=== PATIENT | female | born 1955 | race African-American/Black ===

== ENCOUNTER 2019-02-06 05:57 | Inpatient (IN) | payer BC ==
[2019-02-04 12:12] VITALS: BMI 32.6
[2019-02-06] MEDS ORDERED: oxyCODONE HCL 10 MG SUSTAINED ACTING TABLET ONE (07:18)
[2019-02-06] MEDS ORDERED: oxyCODONE HCL 10 MG SUSTAINED ACTING TABLET PO ONE (07:19)
[2019-02-06] MEDS ORDERED: VANCOMYCIN 1,000 MG in DEXTROSE 5%-WATER - 250 ML IVPB ONE (07:27)
[2019-02-06] MEDS ORDERED: TRANEXAMIC ACID 1000 MG/10 ML VIAL IVPUSH ONE (07:27)
--- NOTE | 2019-02-06 07:30 | HP ---
History & Physical Update - History History: No Change - Physical Physical: No Change - Assessment Assessment: No Change - Plan Plan: No Change (H&P in chart from 02/02/2019)
[2019-02-06] MEDS ORDERED: SODIUM CHLORIDE 0.9% P/F 10 ML VIAL IJ ONE (07:45)
[2019-02-06] MEDS ORDERED: BUPIVACAINE LIPOSOME/PF (EXPAREL) 266 MG/20 ML VIAL ONE (07:45)
[2019-02-06] MEDS ORDERED: MIDAZOLAM HCL 2 MG/2 ML SINGLE DOSE VIAL ONE ×3 (07:46→08:57)
[2019-02-06] MEDS ORDERED: CLINDAMYCIN 900 MG PREMIX IVPB 900 MG/50 ML BAG IVPB ONE (08:15)
[2019-02-06] MEDS ORDERED: BUPIVACAINE HCL/PF 0.5% (5MG/ML) 10 ML VIAL ONE (08:18)
[2019-02-06] MEDS ORDERED: ceFAZolin SODIUM 1 GM VIAL ONE (08:20)
[2019-02-06] MEDS ORDERED: VANCOMYCIN 1,000 MG VIAL (RESTRICTED TO ID ONLY) ONE (08:20)
[2019-02-06] MEDS ORDERED: TRANEXAMIC ACID 1000 MG/10 ML VIAL ONE (08:26)
[2019-02-06] MEDS ORDERED: CEFAZOLIN 2 GM in DEXTROSE 5%-WATER - 50 ML IVPB ONE (08:44)
[2019-02-06] MEDS ORDERED: PROPOFOL 20 ML ONE ×3 (09:17→10:04)
[2019-02-06] MEDS ORDERED: BENZOIN/ALOE VERA/STORAX/TOLU 58 ML BOTTLE ONE (09:52)
[2019-02-06] MEDS ORDERED: ONDANSETRON 4 MG/2 ML VIAL IVPUSH PRN ×2 (11:07→11:28)
[2019-02-06] MEDS ORDERED: LACTATED RINGERS SOLUTION 1,000 ML IV SCH ×2 (11:15→11:30)
[2019-02-06] MEDS ORDERED: MAG HYDROX/AL HYDROX/SIMETH 30 ML UNIT-DOSE CUP PO PRN (11:28)
[2019-02-06] MEDS ORDERED: MAGNESIUM HYDROX 2400MG/30ML ORAL SUSPENSION 30 ML CUP PO PRN (11:28)
--- NOTE | 2019-02-06 11:28 | OP ---
Operative Note - Note: Operative Date: 02/06/19 Pre-Operative Diagnosis: right knee osteoarthritis Operation: Total right knee replacement Surgeon: Yeison Ho Sprinkling Truck Driver: Anamaria Middleton Anesthesiologist/CLINICAL PROGRAM COORDINATOR: Antonella Nash Anesthesia: Spinal Estimated Blood Loss (mls): 50 Drains, Volume Out (mls): 20 (hemovac) Fluid Volume Replaced (mls): 1,400 Operative Report Dictated: Yes
--- NOTE | 2019-02-06 11:43 | SURG ---
Surgery Safety Specialist Note Safety Specialist: Anamaria Middleton PA-C Date of Service: 02/06/19 Diagnosis: right knee osteoarthritis Procedure: total right knee replacement I was present for the entirety of the operative procedure. For further detail, please refer to operative report. Visit type - Case Type Case Type: Scheduled - Emergency Emergency Visit: No - New patient This patient is new to me today: Yes Date on this admission: 02/06/19
--- NOTE | 2019-02-06 11:51 | OP ---
DATE OF OPERATION: 02/06/2019 SURGEON: Yeison Ho MD PAINTER PLATE: Anamaria Middleton PA-C PREOPERATIVE DIAGNOSIS: Tricompartmental osteoarthritis, fixed valgus knee deformity on the right. POSTOPERATIVE DIAGNOSIS: Tricompartmental osteoarthritis, fixed valgus knee deformity on the right. OPERATION: 1. Right total knee arthroplasty. 2. Lateral release. ANESTHESIA: Spinal anesthesia with peripheral block and conscious sedation. ANTIBIOTICS GIVEN: Clindamycin with vancomycin (PENICILLIN allergy). TOURNIQUET TIME: 1 hour 10 minutes. PROCEDURE: The patient was correctly identified and brought to the operating room. The right lower extremity was prepped and draped in the routine manner with Betadine scrub solution, wiped with alcohol, and DuraPrep was applied. A right free drape utilized. Time-out was called. Imaging was available for intraoperative evaluation. Incision was made longitudinally over the patella. The quadriceps tendon was split longitudinally, curved around the medial aspect of the patella in a routine parapatellar fashion to the medial aspect of the tibial tubercle. The patella was capsized laterally. The patellar cut was made first from patellar ligament to quadriceps tendon, and the appropriate jig for a size 27-mm patellar button was utilized for the lug holes, which were inserted with no complications. The knee itself revealed severe tricompartmental osteoarthritis with dystrophic calcification throughout the synovium and the femoral condyles in keeping with chondrocalcinosis, gout, or repeat cortisone injections. The tibia subluxed forward. Tibial cut was made to neutral to receive a size 4 tibial component. The femoral bone cuts were made with the appropriate Leiyoo jig system. It was set at 8-mm distal femoral cut. This lined up to the joint line. An 8-mm cut and 3 degrees of external rotation with 4 degrees of valgus. Once the cuts had been made, the femoral component was seated. The tibial component seated. Alignment was brought back into the mechanical axis from significant fixed valgus deformities. A release of the popliteus tendon was necessary, and fragmented tissue in the posterolateral corner with meniscus and capsule were all resected, and this enabled slight loosening of the posterolateral corner in order to achieve an equally distant rectangle. The medial collateral ligament was stretched and somewhat attenuated. Once we were happy with the sizings and seating of the components, the flexion and extension gaps were previously measured at 11 mm. Final instrumentation was a size 3 femur, size 4 tibia, size 27-mm patellar button, and a size 11 polyethylene with TS articulation . Cementing using one stage. All extraneous cement was removed. Prior to cementing, the bone bed was thoroughly lavaged to remove all fat and blood products. Patellar tracking was challenged with tilting of the patella, a 2-inch lateral release from distal to proximal was performed using a Bovie. Closure quadriceps tendon 1 Vicryl, subcutaneous 1 and 2-0 Vicryl, skin 3-0 Monocryl with Steri-Strips. Drainage a 1/8-inch Hemovac x1. No complications. Operation went well. Range of movement on the table 0 to 130 degrees and complete stability in the coronal sagittal rotation appreciated. Axial alignment was perfect. MD INEZ Velazquez/[id number]
[2019-02-06] MEDS: ACETAMINOPHEN 325 MG TABLET (FP) PO SCH ×3 (12:05→23:20)
--- NOTE | 2019-02-06 13:43 | CONSULT ---
Consultation: REQUESTING PROVIDER: Dr. Yeison Ho CONSULT REQUEST: We have been asked to medically evaluate this patient post- operatively. HISTORY OF PRESENT ILLNESS: 63 year-old female with a PMH significant for HTN and right knee osteoarthritis s/p total right knee replacement today. REVIEW OF SYSTEMS: CONSTITUTIONAL: Absent: fever, chills, diaphoresis, generalized weakness, malaise, loss of appetite, weight change HEENT: Absent: rhinorrhea, nasal congestion, throat pain, throat swelling, difficulty swallowing, mouth swelling, ear pain, eye pain, visual changes CARDIOVASCULAR: Absent: chest pain, syncope, palpitations, irregular heart rate, lightheadedness , peripheral edema RESPIRATORY: Absent: cough, shortness of breath, dyspnea with exertion, orthopnea, wheezing, stridor, hemoptysis GASTROINTESTINAL: Absent: abdominal pain, abdominal distension, nausea, vomiting, diarrhea, constipation, melena, hematochezia GENITOURINARY: Absent: dysuria, frequency, urgency, hesitancy, hematuria, flank pain, genital pain MUSCULOSKELETAL: Absent: myalgia, arthralgia, joint swelling, back pain, neck pain SKIN: Absent: rash, itching, pallor HEMATOLOGIC/IMMUNOLOGIC: Absent: easy bleeding, easy bruising, lymphadenopathy, frequent infections ENDOCRINE: Absent: unexplained weight gain, unexplained weight loss, heat intolerance, cold intolerance NEUROLOGIC: Absent: headache, focal weakness or paresthesias, dizziness, unsteady gait, seizure, mental status changes, bladder or bowel incontinence PSYCHIATRIC: Absent: anxiety, depression, suicidal or homicidal ideation, hallucinations. PHYSICAL EXAMINATION Vital Signs - 24 hr 02/06/19 02/06/19 02/06/19 06:48 11:25 11:30 Temperature 98.3 F 97.7 F Pulse Rate 78 70 68 Respiratory 18 16 18 Rate Blood Pressure 109/75 106/62 109/66 O2 Sat by Pulse 98 100 Oximetry (%) 02/06/19 02/06/19 02/06/19 11:35 11:40 11:45 Temperature Pulse Rate 63 64 59 L Respiratory 20 19 21 H Rate Blood Pressure 118/66 113/64 127/66 O2 Sat by Pulse 100 100 100 Oximetry (%) 02/06/19 02/06/19 02/06/19 12:00 12:15 12:30 Temperature Pulse Rate 68 62 61 Respiratory 18 20 21 H Rate Blood Pressure 120/66 127/70 120/79 O2 Sat by Pulse 100 100 100 Oximetry (%) 02/06/19 12:45 Temperature 97.7 F Pulse Rate 63 Respiratory 19 Rate Blood Pressure 128/72 O2 Sat by Pulse Oximetry (%) GENERAL: Awake, alert, and fully oriented, in no acute distress. HEAD: Normal with no signs of trauma. EYES: Pupils equal, round and reactive to light, extraocular movements intact, sclera anicteric, conjunctiva clear. No lid lag. EARS, NOSE, THROAT: Ears normal, nares patent, oropharynx clear without exudates. Moist mucous membranes. NECK: Normal range of motion, supple without lymphadenopathy, JVD, or masses. LUNGS: Breath sounds equal, clear to auscultation bilaterally. No wheezes, and no crackles. No accessory muscle use. HEART: Regular rate and rhythm, normal S1 and S2 without murmur, rub or gallop. ABDOMEN: Soft, nontender, not distended, normoactive bowel sounds, no guarding, no rebound, no masses. No hepatomegaly or splenomegaly. MUSCULOSKELETAL: Normal range of motion at all joints. No bony deformities or tenderness. No CVA tenderness. UPPER EXTREMITIES: 2+ pulses, warm, well-perfused. No cyanosis. No clubbing. Cap refill <2 seconds. No peripheral edema. LOWER EXTREMITIES: 2+ pulses, warm, well-perfused. No calf tenderness. No peripheral edema. NEUROLOGICAL: Cranial nerves II-XII intact. Normal speech. Normal gait. PSYCHIATRIC: Cooperative. Good eye contact. Appropriate mood and affect. SKIN: Warm, dry, normal turgor, no rashes or lesions noted. Active Medications Generic Name Dose Route Start Last Admin Trade Name Freq PRN Reason Stop Dose Admin Acetaminophen 650 mg 02/06/19 11:15 02/06/19 12:05 Tylenol - PO 02/09/19 11:14 650 mg Q6H KRISTEN Administration Al Hydroxide/Mg Hydroxide 30 ml 02/06/19 11:28 Mylanta Oral Suspension - PO Q4H PRN DYSPEPSIA Aspirin 325 mg 02/06/19 22:00 Asa - PO BID KRISTEN Fentanyl 50 mcg 02/06/19 11:07 Sublimaze Injection - IVPUSH [id number] PRN PAIN-PACU ORDER X 4 DOSES ONLY Hydrochlorothiazide 25 mg 02/07/19 10:00 Hctz - PO DAILY KRISTEN Lactated Ringer's 1,000 mls @ 125 mls/hr 02/06/19 11:30 Lactated Ringers Solution IV 02/07/19 06:00 ASDIR [facility] Cefazolin Sodium 1 gm/ 50 mls @ 100 mls/hr 02/06/19 16:00 Dextrose IVPB 02/06/19 16:29 ONCE ONE Magnesium Hydroxide 30 ml 02/06/19 11:28 Milk Of Magnesia - PO PRN PRN CONSTIPATION Multivitamins/Minerals/Vitamin C 1 tab 02/07/19 10:00 Tab-A-Vit - PO DAILY [facility] Non-Formulary Medication 1 each 02/07/19 10:00 Amlodipine Besylate/Benazepril [Lotrel ] PO DAILY [facility] Ondansetron HCl 4 mg 02/06/19 11:07 Zofran Injection IVPUSH Q6H PRN NAUSEA AND/OR VOMITING Ondansetron HCl 4 mg 02/06/19 11:28 Zofran Injection IVPUSH Q6H PRN NAUSEA Oxycodone HCl 5 mg 02/06/19 11:07 Roxicodone - PO Q3H PRN PAIN LEVEL 1-5 Oxycodone HCl 10 mg 02/06/19 11:07 Roxicodone - PO Q3H PRN PAIN LEVEL 6-10 Oxycodone HCl 10 mg 02/06/19 22:00 Oxycontin - PO 02/09/19 11:08 BID [facility] Pantoprazole Sodium 40 mg 02/07/19 10:00 Protonix - PO DAILY [facility] Senna/Docusate Sodium 2 tablet 02/06/19 22:00 Pericolace - PO BID [facility] Pre op Hgb 11.8 BUN/Cr 15/0.8 OR Vanc x 1 Cefazolin x 1 LR 1.4L not on beta blockers ASSESSMENT/PLAN: 63 year-old female with a PMH significant for HTN and right knee osteoarthritis s/p total right knee replacement today. Right total knee replacement --POD #0 --perioperative antibiotics per surgery --pain management per surgery --ASA 325mg BID --protonix --bowel regimen --incentive spirometry --Hemovac drain, monitor output --no tee Hypertension --continue lisinopril 40mg (formulary equivalent), amlodipine FEN Fluids: LR@125mL/hr Electrolytes: replete as indicated Nutrition: regular diet DVT prophylaxis: OOB, ambulation, SCDs, TEDs, ASA 325 mg BID Physical therapy Dispo: We will continue to follow the patient. Thank you for this consultative opportunity. Visit type - Emergency Visit Emergency Visit: No - New Patient This patient is new to me today: Yes Date on this admission: 02/06/19 - Critical Care Critical Care patient: No
[2019-02-06] MEDS: oxyCODONE HCL 5 MG TABLET PO PRN ×3 (13:53→22:59)
[2019-02-06] MEDS ORDERED: CEFAZOLIN 1 GM/D5W 1 GM/50 ML BAG IVPB ONE (16:00)
[2019-02-06] MEDS ORDERED: KETOROLAC TROMETHAMINE 30 MG/1 ML VIAL IVPUSH PRN (16:45)
[2019-02-06] MEDS: HYDROmorphone HCL CARPU-JECT 1 MG/1 ML DISP.SYRIN IVPB PRN (17:05)
[2019-02-06] MEDS: oxyCODONE HCL 10 MG SUSTAINED ACTING TABLET PO SCH (21:55)
[2019-02-06] MEDS: ASPIRIN 325 MG TABLET PO SCH (21:56)
[2019-02-06] MEDS: SENNOSIDES/DOCUSATE COMBO (SENNA PLUS) TABLET (UD) PO SCH (21:56)
[2019-02-07] MEDS ORDERED: CEFAZOLIN 1 GM/D5W 1 GM/50 ML BAG IVPB ONE
[2019-02-07] MEDS: oxyCODONE HCL 5 MG TABLET PO PRN ×6 (03:31→21:19)
[2019-02-07] MEDS: ACETAMINOPHEN 325 MG TABLET (FP) PO SCH ×3 (06:12→17:37)
[2019-02-07] MEDS: HYDROmorphone HCL CARPU-JECT 1 MG/1 ML DISP.SYRIN IVPB PRN (06:27)
[2019-02-07 08:19] LABS: BASO % 0.5 % (0-2.0); EOS % 6.7 % (0-4.5); HEMATOCRIT 28.8 % (32.4-45.2); HEMOGLOBIN 9.3 GM/dl (10.7-15.3); LYMPH % 17.8 % (8-40); MCHC 32.3 g/dl (32.0-36.0); MEAN CELL VOLUME 83.7 fl (80-96); MONO % 9.3 % (3.8-10.2); NEUT % 65.7 % (42.8-82.8); PLATELET COUNT 232 K/MM3 (134-434); RBC 3.44 M/mm3 (3.60-5.2); RDW 14.6 % (11.6-15.6); WHITE BLOOD COUNT 6.6 K/mm3 (4.0-10.8)
[2019-02-07 08:24] LABS: ALBUMIN 3.1 g/dl (3.4-5.0); ALK PHOS 55 U/L (45-117); ANION GAP 6 MMOL/L (8-16); BILIRUBIN,TOTAL 0.7 mg/dl (0.2-1); BLOOD UREA NITROGEN 12 mg/dl (7-18); CHLORIDE 107 mmol/L (98-107); CO2 26 mmol/L (21-32); CREATININE 0.7 mg/dl (0.55-1.3); GLUCOSE,RANDOM 114 mg/dl (74-106); MAGNESIUM 1.5 mg/dL (1.8-2.4); POTASSIUM 3.5 mmol/L (3.5-5.1); SGOT/AST 24 U/L (15-37); SGPT/ALT 15 U/L (13-61); SODIUM 139 mmol/L (136-145); TOT PROT 5.8 g/dl (6.4-8.2)
[2019-02-07] MEDS ORDERED: KETOROLAC TROMETHAMINE 30 MG/1 ML VIAL IVPUSH ONE (08:45)
[2019-02-07] MEDS: oxyCODONE HCL 10 MG SUSTAINED ACTING TABLET PO SCH ×2 (09:02→21:19)
[2019-02-07] MEDS: LISINOPRIL 20 MG TABLET (FP) PO SCH (10:48)
[2019-02-07] MEDS: HYDROCHLOROTHIAZIDE 25 MG TABLET (FP) PO SCH (10:48)
[2019-02-07] MEDS: PANTOPRAZOLE 40 MG TABLET (FP) PO SCH (10:48)
[2019-02-07] MEDS: SENNOSIDES/DOCUSATE COMBO (SENNA PLUS) TABLET (UD) PO SCH (10:48)
[2019-02-07] MEDS: amLODIPine BESYLATE 10 MG TABLET (FP) PO SCH (10:48)
[2019-02-07] MEDS: MULTIVITAMINS (DAILY MVI) TABLET (FP) PO SCH (10:49)
[2019-02-07] MEDS: ASPIRIN 325 MG TABLET PO SCH ×2 (10:49→21:19)
--- NOTE | 2019-02-07 12:58 | PN ---
Progress Note (short form) - Note Progress Note: POD#1 Pt without any CP, SOB. Tolerated her diet. Voiding without difficulty. Pain better controlled overnight, this am pain at a 10 after getting dressed. Vital Signs Period Temp Pulse Resp BP Sys/Tomas Pulse Ox Last 24 Hr 97.5 F-99.6 F 80-86 17-18 117-150/53-70 95-100 Hemovac: 405 overnight, 100 ml today-bloody GEN: A&0x3, NAD CV: RRR Lungs: CTA b/l anteiorly ABD: soft, non-distended, non-tender LE: 5/5 dorsi/plantar flexion b/l. +2 DP. Dressing c/d/i. CBC, BMP 03/21/19 07:06 03/21/19 07:06 A/P: 63 yo female s/p Right TKR, POD#1 Continue hemovac drain and monitor outpt, plan for drain removal in the am OOB and ambuate with PT DVT ppx with ADELITA/SCD and aspirin 325mg BID Pain managment, oral/IV as needed Stool softners while using narcotics for pain control
[2019-02-07] MEDS ORDERED: MAGNESIUM OXIDE 400 MG TABLET (FP) PO ONE (14:09)
--- NOTE | 2019-02-07 14:09 | PN ---
Physical Exam: SUBJECTIVE: Patient seen and examined oob to chair. Pain is well-controlled. OBJECTIVE: Vital Signs Period Temp Pulse Resp BP Sys/Tomas Pulse Ox Last 24 Hr 98.5 F-99.6 F 82-86 18-18 117-150/53-70 95-100 GENERAL: The patient is awake, alert, and fully oriented, in no acute distress. LUNGS: Breath sounds equal, clear to auscultation bilaterally, no wheezes, no crackles, no accessory muscle use. HEART: Regular rate and rhythm, S1, S2 ABDOMEN: Soft, nontender, nondistended RLE: SCDs, TEDs, ice pack; surgical dressing c/d/i; flex/extend toes, 5/5 sensory NEUROLOGICAL: Cranial nerves II through XII grossly intact. Normal speech, gait not observed. Laboratory Results - last 24 hr 02/07/19 02/07/19 07:06 07:06 WBC 6.6 RBC 3.44 L Hgb 9.3 L Hct 28.8 L MCV 83.7 MCH 27.0 MCHC 32.3 RDW 14.6 Plt Count 232 MPV 9.0 Absolute Neuts (auto) 4.4 Neutrophils % 65.7 Lymphocytes % 17.8 Monocytes % 9.3 Eosinophils % 6.7 H Basophils % 0.5 Sodium 139 Potassium 3.5 Chloride 107 Carbon Dioxide 26 Anion Gap 6 L BUN 12 Creatinine 0.7 Creat Clearance w eGFR 85.07 Random Glucose 114 H Calcium 9.0 Magnesium 1.5 L Total Bilirubin 0.7 AST 24 ALT 15 Alkaline Phosphatase 55 Total Protein 5.8 L Albumin 3.1 L Active Medications Generic Name Dose Route Start Last Admin Trade Name Donalq PRN Reason Stop Dose Admin Acetaminophen 650 mg 02/06/19 11:15 02/07/19 10:48 Tylenol - PO 02/09/19 11:14 650 mg Q6H KRISTEN Administration Al Hydroxide/Mg Hydroxide 30 ml 02/06/19 11:28 Mylanta Oral Suspension - PO Q4H PRN DYSPEPSIA Amlodipine Besylate 10 mg 02/07/19 10:00 02/07/19 10:48 Norvasc - PO 10 mg DAILY KRISTEN Administration Aspirin 325 mg 02/06/19 22:00 02/07/19 10:49 Asa - PO 325 mg BID KRISTEN Administration Hydrochlorothiazide 25 mg 02/07/19 10:00 02/07/19 10:48 Hctz - PO 25 mg DAILY KRISTEN Administration Hydromorphone HCl 1 mg 02/06/19 16:41 02/07/19 06:27 Dilaudid Injection - IVPB 1 mg Q3H PRN Administration PAIN LEVEL 7 - 10 Lisinopril 40 mg 02/07/19 10:00 02/07/19 10:48 Prinivil PO 40 mg DAILY KRISTEN Administration Magnesium Hydroxide 30 ml 02/06/19 11:28 Milk Of Magnesia - PO PRN PRN CONSTIPATION Multivitamins/Minerals/Vitamin C 1 tab 02/07/19 10:00 02/07/19 10:49 Tab-A-Vit - PO 1 tab DAILY KRISTEN Administration Ondansetron HCl 4 mg 02/06/19 11:28 02/06/19 13:53 Zofran Injection IVPUSH 4 mg Q6H PRN Administration NAUSEA Oxycodone HCl 5 mg 02/06/19 11:07 Roxicodone - PO Q3H PRN PAIN LEVEL 1-3 Oxycodone HCl 10 mg 02/06/19 11:07 02/07/19 13:30 Roxicodone - PO 10 mg Q3H PRN Administration PAIN LEVEL 4-6 Oxycodone HCl 10 mg 02/06/19 22:00 02/07/19 09:02 Oxycontin - PO 02/09/19 11:08 10 mg BID KRISTEN Administration Pantoprazole Sodium 40 mg 02/07/19 10:00 02/07/19 10:48 Protonix - PO 40 mg DAILY KRISTEN Administration Senna/Docusate Sodium 2 tablet 02/06/19 22:00 02/07/19 10:48 Pericolace - PO 2 tablet BID KRISTEN Administration Pre op Hgb 11.8 BUN/Cr 15/0.8 OR Vanc x 1 Cefazolin x 1 LR 1.4L not on beta blockers ASSESSMENT/PLAN: 63 year-old female with a PMH significant for HTN and right knee osteoarthritis s/p total right knee replacement on 02/06/19. Right total knee replacement --POD #1 --perioperative antibiotics complete --pain management per surgery --ASA 325mg BID --protonix --bowel regimen --incentive spirometry --Hemovac drain still in place, 100ccs in past 8 hours --no tee Hypertension --continue lisinopril 40mg (formulary equivalent), amlodipine Hypomagnesemia --repleted FEN Fluids: PO intake adequate Electrolytes: replete as indicated Nutrition: regular diet DVT prophylaxis: OOB, ambulation, SCDs, TEDs, ASA 325 mg BID Physical therapy Dispo: We will continue to follow the patient. Thank you for this consultative opportunity. ASSESSMENT/PLAN 3 yo female s/p Right TKR, POD#1 Continue hemovac drain and monitor outpt, plan for drain removal in the am OOB and ambuate with PT DVT ppx with ADELITA/SCD and aspirin 325mg BID Pain managment, oral/IV as needed Stool softners while using narcotics for pain control D/w DR. Ho Visit type - Emergency Visit Emergency Visit: Yes ED Registration Date: 02/06/19 Care time: The patient presented to the Emergency Department on the above date and was hospitalized for further evaluation of their emergent condition. - New Patient This patient is new to me today: No - Critical Care Critical Care patient: No
[2019-02-08] MEDS: ACETAMINOPHEN 325 MG TABLET (FP) PO SCH ×3 (00:06→12:00)
[2019-02-08] MEDS: oxyCODONE HCL 5 MG TABLET PO PRN ×4 (00:06→12:00)
[2019-02-08 06:35] VITALS: BP 133/67; PULSE 85; TEMP 98.6
[2019-02-08] MEDS: SENNOSIDES/DOCUSATE COMBO (SENNA PLUS) TABLET (UD) PO SCH ×2 (06:57→09:06)
--- NOTE | 2019-02-08 07:43 | DS ---
Physical Exam: SUBJECTIVE: Patient seen and examined. POD #2 s/p Right TKA. OBJECTIVE: Vital Signs Temperature 98.6 F 02/08/19 06:00 Pulse Rate 85 02/08/19 06:00 Respiratory Rate 18 02/08/19 06:00 Blood Pressure 133/67 02/08/19 06:00 O2 Sat by Pulse Oximetry (%) 98 02/08/19 06:00 PHYSICAL EXAM GEN: A&0x3, NAD CV: RRR Lungs: CTA b/l anteiorly ABD: soft, non-distended, non-tender LE: 5/5 dorsi/plantar flexion b/l. +2 DP. Dressing c/d/i. PSYCH: Normal mood, normal affect. LABS CBC,CMP WBC 6.6 K/mm3 (4.0-10.8) 02/07/19 07:06 RBC 3.44 M/mm3 (3.60-5.2) L 02/07/19 07:06 Hgb 9.3 GM/dl (10.7-15.3) L 02/07/19 07:06 Hct 28.8 % (32.4-45.2) L 02/07/19 07:06 MCV 83.7 fl (80-96) 02/07/19 07:06 MCH 27.0 pg (25.7-33.7) 02/07/19 07:06 MCHC 32.3 g/dl (32.0-36.0) 02/07/19 07:06 RDW 14.6 % (11.6-15.6) 02/07/19 07:06 Plt Count 232 K/MM3 (134-434) 02/07/19 07:06 MPV 9.0 fl (7.5-11.1) 02/07/19 07:06 Absolute Neuts (auto) 4.4 K/mm3 02/07/19 07:06 Neutrophils % 65.7 % (42.8-82.8) 02/07/19 07:06 Lymphocytes % 17.8 % (8-40) 02/07/19 07:06 Monocytes % 9.3 % (3.8-10.2) 02/07/19 07:06 Eosinophils % 6.7 % (0-4.5) H 02/07/19 07:06 Basophils % 0.5 % (0-2.0) 02/07/19 07:06 Sodium 139 mmol/L (136-145) 02/07/19 07:06 Potassium 3.5 mmol/L (3.5-5.1) 02/07/19 07:06 Chloride 107 mmol/L (98-107) 02/07/19 07:06 Carbon Dioxide 26 mmol/L (21-32) 02/07/19 07:06 Anion Gap 6 MMOL/L (8-16) L 02/07/19 07:06 BUN 12 mg/dl (7-18) 02/07/19 07:06 Creatinine 0.7 mg/dl (0.55-1.3) 02/07/19 07:06 Creat Clearance w eGFR 85.07 (>60) 02/07/19 07:06 Random Glucose 114 mg/dl (74-106) H 02/07/19 07:06 Calcium 9.0 mg/dl (8.5-10) 02/07/19 07:06 Magnesium 1.5 mg/dL (1.8-2.4) L 02/07/19 07:06 Total Bilirubin 0.7 mg/dl (0.2-1) 02/07/19 07:06 AST 24 U/L (15-37) 02/07/19 07:06 ALT 15 U/L (13-61) 02/07/19 07:06 Alkaline Phosphatase 55 U/L (45-117) 02/07/19 07:06 Total Protein 5.8 g/dl (6.4-8.2) L 02/07/19 07:06 Albumin 3.1 g/dl (3.4-5.0) L 02/07/19 07:06 HOSPITAL COURSE: Date of Admission:02/06/19 Date of Discharge: 02/08/19 63 yo female admitted to the Med-Surg Unit after an elective repair of their right knee DJD. Now, s/p right total knee arthroplasty. The day of surgery, the patient ambulated the hallways with assistance. Narcotic and non-narcotic pain management control was achieved with an oral and IV approach. POD #2, the surgical drain was removed fully intact and without incident. An intraop xray was obtained and confirmed hardware placement right knee to be in good position, no fractures or dislocations. Dilma-operative IV ABX were administered. DVT prophylaxis was achieved with SCDs and early ambulation. The patient ambulated with Physical Therapy and no services were recommended upon discharge. Narcotic scripts were checked with [facility] prior to escribe. The discharge instructions and an oral pain management plan were reviewed with the patient. All questions answered. Above plan discussed with Dr. Ho and agreed. Minutes to complete discharge: 35 Visit type - Case Type Case Type: Scheduled - New patient This patient is new to me today: Yes Date on this admission: 02/08/19
[2019-02-08 07:58] LABS: HEMATOCRIT 29.3 % (32.4-45.2); HEMOGLOBIN 9.3 GM/dl (10.7-15.3); MCH 26.8 pg (25.7-33.7); MCHC 31.7 g/dl (32.0-36.0); MEAN CELL VOLUME 84.6 fl (80-96); MEAN PLT VOLUME 9.1 fl (7.5-11.1); PLATELET COUNT 237 K/MM3 (134-434); RBC 3.47 M/mm3 (3.60-5.2); RDW 14.7 % (11.6-15.6); WHITE BLOOD COUNT 8.2 K/mm3 (4.0-10.8)
[2019-02-08] MEDS: ASPIRIN 325 MG TABLET PO SCH (09:05)
[2019-02-08] MEDS: amLODIPine BESYLATE 10 MG TABLET (FP) PO SCH (09:06)
[2019-02-08] MEDS: oxyCODONE HCL 10 MG SUSTAINED ACTING TABLET PO SCH (09:06)
[2019-02-08] MEDS: PANTOPRAZOLE 40 MG TABLET (FP) PO SCH (09:07)
[2019-02-08] MEDS: LISINOPRIL 20 MG TABLET (FP) PO SCH (09:07)
[2019-02-08] MEDS: HYDROCHLOROTHIAZIDE 25 MG TABLET (FP) PO SCH (09:07)
[2019-02-08] MEDS: MULTIVITAMINS (DAILY MVI) TABLET (FP) PO SCH (09:08)
--- NOTE | 2019-02-08 16:31 | PATH ---
Surgical Pathology Report Patient Name: SHAWNA ARIAS Med. Rec. #: [id number] /Age/Gender: 1955 (Age: 63) / F Account: [id number] Location: [facility] MED-SURG Taken: 02/06/2019 Received: 02/06/2019 Reported: 02/08/2019 Physicians: Yeison Ho M.D. Specimen(s) Received RIGHT KNEE BONES Clinical History Right knee osteoarthritis Final Diagnosis BONE, KNEE, RIGHT, ARTHROPLASTY: BONE WITH DEGENERATIVE JOINT DISEASE, DENSE FIBROCONNECTIVE TISSUE, AND REACTIVE SYNOVIUM. Electronically Signed Hortensia Lopez M.D. Gross Description Received in formalin labeled "right knee bones," is a 12.5 x 11.0 x 2.0 cm aggregate of multiple portions of bone and soft tissue. The tibial plateau measures 7.2 x 5.5 x 1.5 cm. There is a 3.5 cm in greatest dimension area of eburnation present. The remaining articular surfaces are dugan-yellow and focally granular. The underlying trabecular bone is yellow and hard. Optical Instrument Specialist sections are submitted in one cassette, following decalcification. /02/07/201902/07/2019
== END 2019-02-08 14:40 | disposition home or self-care (01) | DRG 470 ==
LOC: FM/S 05:57
PROVIDERS: ADMIT Orthopaedic Surgery Orthopaedic Surgery of the Spine; ATTEND Orthopaedic Surgery Orthopaedic Surgery of the Spine
PROC: 0SRC0J9 Replacement of Right Knee Joint with Synthetic Substitute, Cemented, Open Approach (ICD-10-PCS; principal; 2019-02-06 09:04)
DX: M17.11 Unilateral primary osteoarthritis, right knee (principal); I10 Essential (primary) hypertension; E83.42 Hypomagnesemia
CPT/HCPCS: 36415; 73560-TC-RT-FY; 80048; 80053; 83735; 85025; 85027; 88304-TC; 88311-TC; 94760; 97116-GP; 97163-GP